=== PATIENT | male | born 1990 | race Two or more races ===

== ENCOUNTER 2023-09-02 17:43 | Emergency (ER) | payer BC, OTHER ==
[~2023-09-02] VITALS: Ht 172.7 cm; Wt 97.6 kg
[2023-09-02] MEDS: LIDOCAINE 1% HCL (LOCAL ANESTH.) INJ 20ML MDV ID ONE (20:20)
[2023-09-02 20:48] VITALS: BP 124/86; PULSE 86; RESP 18; TEMP 98.2; O2SAT 98
== END 2023-09-02 21:11 | disposition home or self-care (01) ==
LOC: ER 17:43
DX: S61.411A Laceration without foreign body of right hand, initial encounter (principal); W45.8XXA Other foreign body or object entering through skin, initial encounter; Y93.89 Activity, other specified; Y92.89 Other specified places as the place of occurrence of the external cause; Y99.8 Other external cause status
CPT/HCPCS: 12002; 99283; J2001